=== PATIENT | female | born 1945 | race Two or more races ===

== ENCOUNTER → 2020-12-21 | Day surgery (SDC) | payer OTHER ==
[~2020-12-21] VITALS: Ht 157.5 cm; Wt 68.0 kg
[~2020-12-21] MED LIST: BACL10TA PO; BUPIVACAINE 0.5% MPF INJ 30ML SDV IJ ONE; DexAMETHasone SOD PHOS 10MG/1ML VIAL INJ ONE; EPINEPHrine HCL 1 MG/1 ML AMP ONE; FAMO-12 PO; FENO160T8 PO; GLYCOPYRROLATE 0.2 MG/ML 1ML VIAL ONE; HYDR-3682 PO; HYDROmorphone HCL 2 MG/ML VL IV PRN; HYDROmorphone HCL 2 MG/ML VL ONE; KETOROLAC TROMETH 30 MG/ML 1ML VIAL ONE; LEVO88TA4 PO; LIDOCAINE 2% (LOCAL ANESTH.) PF 5ml SDV ONE; MECL25TA18 PO; MIDAZOLAM HCL 1MG/1ML-2 ML VIAL ONE; NEOSTIGMINE 1 MG/ML INJ (10mg/10ML VIAL) ONE; ONDANSETRON HCL 4 MG/2 ML VIAL IV PRN; ONDANSETRON HCL 4 MG/2 ML VIAL ONE; PERCOT PO; PREG75CA PO; PROPOFOL 10 MG/ML 20 ML IV ONE; ROCURONIUM 10MG/ML 10ML VIAL IV ONE; ROPIVACAINE 0.5% (5MG/ML) 20ML AMPULE IJ ONE; [UNRECOGNIZED DRUG - CODE] SL; ceFAZolin 1GM/50ML 50 ML IV ONE; ePHEDrine SULFATE 50 MG/ML AMP ONE; fentaNYL CITRATE 100 MCG/2 ML VL ONE
[2020-12-21 13:15] VITALS: BP 137/60
== END | disposition home or self-care (01) ==
LOC: SUR 07:14
PROVIDERS: ATTEND Orthopaedic Surgery Sports Medicine
DX: M75.101 Unspecified rotator cuff tear or rupture of right shoulder, not specified as traumatic (principal); M94.211 Chondromalacia, right shoulder; I10 Essential (primary) hypertension; G89.29 Other chronic pain; E07.9 Disorder of thyroid, unspecified; M51.36 Other intervertebral disc degeneration, lumbar region; M75.51 Bursitis of right shoulder; Z90.49 Acquired absence of other specified parts of digestive tract; Z90.710 Acquired absence of both cervix and uterus; Z20.822 Contact with and (suspected) exposure to COVID-19; Z98.890 Other specified postprocedural states; Z79.899 Other long term (current) drug therapy
CPT/HCPCS: 29823; 29826; 29827; C1713; J0171; J0690; J1100; J1170; J1885; J2001; J2250; J2405; J2704; J2795; J3010; J3490; U0003; A4565